=== PATIENT | female | born 1935 | race Caucasian/White ===

== ENCOUNTER 2017-06-23 07:54 | Observation (INO) | payer MEDICARE, BC ==
[~2017-06-23 07:54] MED LIST: Lidocaine 1%/Sod Bicarbonate in NS 8.4% 1 ML Syringe PRN; Sodium Chloride 0.9% 10 ML Syringe FLUSH PRN
[2017-06-23] MEDS ORDERED: Lidocaine 1% with EPINEPHrine 1:100,000 20 ML MDV ONE (07:56)
[2017-06-23] MEDS ORDERED: Sodium Chloride 0.9% 50 ML SDV ONE (07:56)
[2017-06-23] MEDS ORDERED: Lidocaine 1% 4 ML ONE (08:10)
[2017-06-23] MEDS ORDERED: Rocuronium 50 MG/5 ML Vial ONE (08:10)
[2017-06-23] MEDS ORDERED: Ondansetron 4 MG/2 ML SDV ONE (08:10)
[2017-06-23] MEDS ORDERED: Dexamethasone 4 MG/ML 5 ML MDV ONE (08:10)
[2017-06-23] MEDS ORDERED: Lactated Ringers 1,000 ML ONE (08:10)
[2017-06-23] MEDS ORDERED: fentaNYL 250 MCG/5 ML SDV ONE (08:11)
[2017-06-23] MEDS ORDERED: HYDROmorphone 1 MG/ML Syringe ONE (08:11)
[2017-06-23] MEDS ORDERED: Propofol 200 MG/20 ML SDV ONE (08:11)
--- NOTE | 2017-06-23 08:16 | PCM.PREANE ---
Preanesthetic Assessment - Anesthesia/Transfusion/Family Hx Anesthesia History: Prior Anesthesia Without Reaction Family History of Anesthesia Reaction: No Transfusion History: No Prior Transfusion(s) Intubation History: Unknown - Review of Systems Pulmonary: No Symptoms, Cough (chronic cough dry.) Cardiovascular: No Symptoms (History of HTN, Atrial fibrillation, and Pacemaker ), Palpitations (occasionally) Gastrointestinal: No Symptoms Neurological: No Symptoms (History of TIA's back in early 1999.) Other: Reports: Easy Bleeding (Patient on pradaxa and bridging with lovenox.), Thyroid Problems (hypothyroid), Anxiety (Panic attacks resolved with pacemaker placement.) - Physical Assessment NPO Status Date: 06/22/17 NPO Status Time: 19:00 Pulse: 62 O2 Sat by Pulse Oximetry: 98 Respiratory Rate: 16 Blood Pressure: 167/77 Temperature: 62 C Height: 1.57 m Weight: 64 kg ASA Class: 2 Mental Status: Alert & Oriented x3 Airway Class: Mallampati = 2 Dentition: Reports: Normal Dentition, Caries Thyro-Mental Finger Breadths: 3 Mouth Opening Finger Breadths: 3 ROM/Head Extension: Full Lungs: Clear to Auscultation, Normal Respiratory Effort Cardiovascular: Regular Rate, Regular Rhythm, No Murmurs - Lab Values: All lab values reviewed and noted and within acceptable ranges to proceed with scheduled procedure. - Imaging/EKG Impressions: [id number]/08/17 Sinus rhythm, left axis deviation, rate=60 CXR: Left sided pacer in position without pneumothorax, otherwise unremarkable. - Allergies Allergies/Adverse Reactions: Allergies Allergy/AdvReac Type Severity Reaction Status Date / Time Penicillins Allergy Numbness Verified 06/22/17 15:02 - Anesthesia Plan Pre-Op Medication Ordered: Beta Pal Beta Pal: Metoprolol Med Last Dose Date: 06/23/17 Med Last Dose Time: 06:15 - Acknowledgements Anesthesia Type Planned: General Anesthesia Pt an Appropriate Candidate for the Planned Anesthesia: Yes Alternatives and Risks of Anesthesia Discussed w Pt/Guardian: Yes Pt/Guardian Understands and Agrees with Anesthesia Plan: Yes PreAnesthesia Questionnaire HEENT History: Reports: Allergic Rhinitis, Cataract, Glaucoma, Impaired Vision, Other (See Below) Other HEENT History: wears glasses Cardiovascular History: Reports: Afib, High Cholesterol, Hypertension, Pacemaker Respiratory History: Reports: None Gastrointestinal History: Reports: None Genitourinary History: Reports: None PULMONOLOGIST INTENSIVIST History: Reports: , Other (See Below) Other OB/BYN History: x 6, pelvic prolapse, atrohpic vagintis, grade III cystocele, grade II rectocele Musculoskeletal History: Reports: Osteoarthritis, Other (See Below) Other Musculoskeletal History: osteopenia Neurological History: Reports: None Psychiatric History: Reports: Panic Attack Endocrine/Metabolic History: Reports: Hypothyroidism, Osteopenia Hematologic History: Reports: None Immunologic History: Reports: None Oncologic (Cancer) History: Reports: None Dermatologic History: Reports: Other (See Below) Other Dermatologic History: actinic keratosis - Past Surgical History Cardiovascular Surgical History: Reports: Pacer Respiratory Surgical History: Reports: None GI Surgical History: Reports: None Female Surgical History: Reports: None Male Surgical History: Reports: None Endocrine Surgical History: Reports: None, Thyroidectomy Neurological Surgical History: Reports: None Oncologic Surgical History: Reports: None Dermatological Surgical History: Reports: None - SUBSTANCE USE Smoking Status *Q: Never Smoker Recreational Drug Use History: No - HOME MEDS Home Medications: Home Meds Bimatoprost [Lumigan 0.03% Ophth Soln] 1 drop EYEBOTH BEDTIME 06/22/17 [History] Dabigatran Etexilate Mesylate [Pradaxa] 150 mg PO BID 06/22/17 [History] Diltiazem [Cardizem CD] 240 mg PO DAILY 06/22/17 [History] Estradiol [Vagifem] 10 mcg VAG BEDTIME 06/22/17 [History] Levothyroxine 112 mcg PO DAILY 06/22/17 [History] Losartan [Cozaar] 100 mg PO DAILY 06/22/17 [History] Lutein/Minerals/Vit A,C & E [Ocuvite] 1 tab PO DAILY 06/22/17 [History] Metoprolol Succinate 100 mg PO DAILY 06/22/17 [History] Montelukast Sodium 10 mg PO DAILY 06/22/17 [History] Pyridoxine HCl [Vitamin B-6] 100 mg PO DAILY 06/22/17 [History] - CURRENT (IN HOUSE) MEDS Current Meds: Current Medications Lactated Ringer's (Ringers, Lactated) 1,000 mls @ 125 mls/hr IV ASDIRECTED MILAD Stop: 06/23/17 23:00 Lidocaine/Sodium Bicarbonate (Buffered Lidocaine 1% In Ns 8.4%) 0.25 ml .XX ONETIME PRN PRN Reason: Prior to IV Start Stop: 06/23/17 18:00 Sodium Chloride (Saline Flush) 10 ml FLUSH ASDIRECTED PRN PRN Reason: Keep Vein Open Stop: 06/23/17 18:00 Discontinued Medications Dexamethasone (Dexamethasone) Confirm Administered Dose 20 mg .ROUTE .STK-MED ONE Stop: 06/23/17 08:11 Fentanyl (Sublimaze) Confirm Administered Dose 250 mcg .ROUTE .STK-MED ONE Stop: 06/23/17 08:12 Hydromorphone HCl (Dilaudid) Confirm Administered Dose 1 mg .ROUTE .STK-MED ONE Stop: 06/23/17 08:12 Lidocaine HCl (Xylocaine-Mpf 1%) Confirm Administered Dose 4 mls @ as directed .ROUTE .STK-MED ONE Stop: 06/23/17 08:11 Lactated Ringer's (Ringers, Lactated) Confirm Administered Dose 1,000 mls @ as directed .ROUTE .STK-MED ONE Stop: 06/23/17 08:11 Ondansetron HCl (Zofran) Confirm Administered Dose 4 mg .ROUTE .STK-MED ONE Stop: 06/23/17 08:11 Propofol (Diprivan 20 Ml) Confirm Administered Dose 200 mg .ROUTE .STK-MED ONE Stop: 06/23/17 08:12 Rocuronium [place] (Zemuron) Confirm Administered Dose 50 mg .ROUTE .STK-MED ONE Stop: 06/23/17 08:11
[2017-06-23] MEDS: Lactated Ringers 1,000 ML IV SCH ×3 (08:25→17:03)
[2017-06-23] MEDS ORDERED: fentaNYL 100 MCG/2 ML SDV IVPUSH PRN (10:45)
[2017-06-23] MEDS ORDERED: HYDROmorphone 0.5 MG/0.5 ML Syringe IVPUSH PRN (10:45)
[2017-06-23] MEDS ORDERED: Ketorolac 30 MG/ML SDV ONE (11:59)
[2017-06-23] MEDS ORDERED: Haloperidol Lactate 5 MG/ML SDV IVPUSH ONE (12:00)
--- NOTE | 2017-06-23 12:09 | PCM.POSTAN ---
POST ANESTHESIA ASSESSMENT - MENTAL STATUS Mental Status: Alert, Oriented - VITAL SIGNS Pulse Rate: 90 SaO2: 97 Resp Rate: 20 Blood Pressure: 109/62 Temperature: 37.3 C - RESPIRATORY Respiratory Status: Respiratory Rate WNL, Airway Patent, O2 Saturation Stable, Supplemental Oxygen - CARDIOVASCULAR CV Status: Pulse Rate WNL, Blood Pressure Stable - GASTROINTESTINAL GI Status: No Symptoms - PAIN Pain Score: 0 - POST OP HYDRATION Hydration Status: Adequate & Stable
[2017-06-23] MEDS ORDERED: Ondansetron 4 MG/2 ML SDV IVPUSH PRN (12:15)
--- NOTE | 2017-06-23 12:33 | PCM.OPNOTE ---
- General Post-Op/Procedure Note Date of Surgery/Procedure: 06/23/17 Operative Procedure(s): Total vaginal hysterectomy with bilateral salpingo- oophorectomy, anterior and posterior vaginal repair with a subfascial mid- urethral sling procedure Findings: 1. Grade 3 cystocele 2. Grade 2 rectocele 3. Grade 2 uterine descensus 4. Stress urinary incontinence 5. Atrophic vaginitis/vulvitis 6. Urethral caruncle Pre Op Diagnosis: 1. Grade 3 cystocele. 2. Grade 2 rectocele. 3. Grade 2 uterine descensus. 4. Arrest urinary incontinence. 5. Atrophic vaginitis. 6. Urethral caruncle Post-Op Diagnosis: Same Anesthesia Technique: General ET Tube Other Anesthesia Type: Local anesthesia with lidocaine quarter percent with epinephrine Primary Surgeon: Donovan Isaacs Secondary Surgeon: Chandu Savage Anesthesia Provider: Karli Lundy Automation Software Engineer: Flavio Naik Reason Automation Software Engineer Was Necessary: Retraction, patient safety Role of Automation Software Engineer: Retraction, patient's safety Pathology: Uterus, bilateral fallopian tubes and ovaries. Fluid Replacement, Intraop: 2,000 (Crystalloid) EBL in mLs: 100 Drain/Tube Comments:: Indwelling bladder catheter placed at the end of the case with resultant clear yellow urine. Complications: None Condition: Good Free Text/Narrative:: Surgery duration: One hour 29 minutes Procedure: The patient was placed in supine position on the operating table. General endotracheal anesthesia was accomplished. After positioning, and adequate prep and drape, the procedure was then performed. Sterile speculum was placed in the vagina and cervix was visualized. Cervix was injected with lidocaine quarter percent with epinephrine 15 mL used. A full circumference incision was made in the cervical epithelium. The bladder was pushed well back off cervix. Posterior cul-de-sac was then entered sharply without problems. Left uterosacral was crossclamped with a Enseal vessel closure system. The left uterosacral and then the right uterosacral ligament pedicles were developed using the Enseal system. The anterior cul-de-sac was then entered without problems and the uterine vasculature, cardinal ligament and broad ligament then developed using Enseal vessel closure system. The uterus was inverted at this time and upper broad ligament fallopian tube pedicles were crossclamped with Jose J clamps. Specimen was totally removed. Both these pedicles were then secured with a Jose J stitch of #1 Vicryl. Left and right fallopian tube was normal in appearance.. Using Enseal vessel closure system each of the tubes was then removed and sent with the specimen. Both ovaries were removed per patient's desire. The Enseal vessel closure system was used to remove both ovaries. The patient was found to be hemostatically intact at this time. A pursestring suture was and placed in the peritoneal cavity externalizing pedicles in case of bleeding. Vaginal cuff was sutured for hemostatic reasons with a running locked suture of 0 Monocryl from the 2 o'clock position to the 10 o'clock position posteriorly. Anterior vaginal repair was performed in the routine fashion. The midline epithelium was grasped approximately 3 cm from the urethral meatus. The epithelium at the vaginal cuff after removal of the uterus was grasped 2 with Allis clamps. The epithelium was infiltrated with lidocaine quarter percent with epinephrine approximately 10 mL. Midline incision was made in the epithelium was dissected off the underlying support tissue. The vesicovaginal fascia that remained was then reapproximated midline with approximately 6 the type sutures of 0 Monocryl. This effectively reduced the cystocele. Excess epithelium was removed on each side sharply and the epithelium was reapproximated using 3-0 Monocryl in a short running suture. The posterior vaginal cuff was enclosed right side to left side with running lock suture of 0 Monocryl. Posterior repair was then performed.The uppermost portion of the rectocele was identified and was grasped midline with an Allis clamp. The introital area was grasped at approximately the 4:00 and 8:00 positions at the junction of the vaginal and vulvar epithelium. The area of epithelium was then infiltrated with lidocaine quarter percent with epinephrine. A valerie-shaped piece of epithelium was removed from the posterior introital and perineal area. The vaginal epithelium was then undermined superiorly to the top of the rectocele. It was then incised midline. With sharp and blunt dissection the epithelium was then dissected off of the underlying vesicovaginal fascia. At this point approximately 5 sutures of 0 Monocryl were placed to reapproximate the lateral supportive tissue midline and reduce the rectocele. The excess epithelium was then excised and the epithelium overlying the rectocele repair was then reapproximated with a running suture of 3-0 Monocryl. Perineoplasty was performed using a prostate for V-type stitches of 0 Monocryl. This lengthened the perineal body and the vagina. Also change the angle of vagina. At this point the epithelium over the perineum was closed in an episiotomy fashion using the 3-0 Monocryl suture. The patient's bladder was drained with a red rubber catheter. Normal urine was removed. The epithelium overlying the urethra was grasped approximately 1 cm from the urethral meatus and approximately 2 cm cephalad from there with Allis clamps. The area of the skin overlying the medial aspect of the obturator foramen on each side just posterior to the origin the abductor longus musclewas marked with a marking pen. These 2 areas and the sub-fascial layer of the vaginal were then infiltrated with lidocaine quarter percent with epinephrinetotal of approximately 10 mL was used. incisions made in the epithelium overlying the urethra and 2 small stab wounds 3 mm in length were made in the 2 areas of the panty line of the patient. The subfascial planes and adequately dissected bilaterally to allow placement of the mesh. The helical adapter was then placed through the obturator on patient's left side brought out through the vaginal subfascial plane. Mesh was attached to it and then was pulled back through the obturator foramen. Same was done on the right side. Mesh was then snugged up to the urethra. A Hawk Dilator 15 mm in diameter was used as a spacer to place the mesh in a tension- free position. At this point the mesh was cut off at the skin surface and the dilator was removed. The midline epithelium was closed with a short running suture of 3-0 Monocryl. Skin incisions were closed with Dermabond skin glue. The patient was returned to supine position, awakened from general endotracheal anesthesia and was discharged from operating room in good condition.
[2017-06-23] MEDS ORDERED: Ibuprofen 400 MG Tab PO PRN (18:00)
[2017-06-23] MEDS: Acetaminophen/oxyCODONE 325-5 MG Tab PO PRN (20:44)
[2017-06-23] MEDS ORDERED: Latanoprost 0.005% Ophth Soln 2.5 ML Bottle EYEBOTH SCH (21:00)
[2017-06-23] MEDS ORDERED: Montelukast 10 MG Tab PO SCH (21:00)
[2017-06-24] MEDS: Lactated Ringers 1,000 ML IV SCH (01:31)
[2017-06-24] MEDS ORDERED: Levothyroxine 112 MCG Tab PO SCH (06:00)
[2017-06-24] MEDS: Acetaminophen/oxyCODONE 325-5 MG Tab PO PRN (06:17)
--- NOTE | 2017-06-24 08:34 | PCM48HPAN ---
Post Anesthesia Note - EVALUATION WITHIN 48HRS OF ANESTHETIC Vital Signs in Normal Range: Yes Patient Participated in Evaluation: Yes Respiratory Function Stable: Yes Airway Patent: Yes Cardiovascular Function Stable: Yes Hydration Status Stable: Yes Pain Control Satisfactory: Yes Nausea and Vomiting Control Satisfactory: Yes Mental Status Recovered: Yes - COMMENTS/OBSERVATIONS Free Text/Narrative:: Lesli is resting comfortably. She was up walking the halls yesterday. She plans to do the same today. No complications noted at this time. No further questions.
[2017-06-24] MEDS ORDERED: Dabigatran 75 MG Cap PO SCH (09:00)
[2017-06-24] MEDS ORDERED: Metoprolol Succinate 50 MG Tab.ER PO SCH (09:00)
[2017-06-24] MEDS ORDERED: Multivitamins with Minerals/Folic Acid/Lutein/Zeaxanth Tab PO SCH (09:00)
[2017-06-24] MEDS ORDERED: Vitamin B6-pyridOXINE 50 MG Tab PO SCH (09:00)
[2017-06-24] MEDS ORDERED: Diltiazem 240 MG Cap.ER PO SCH (09:00)
[2017-06-24] MEDS ORDERED: Losartan 100 MG Tab PO SCH (09:00)
--- NOTE | 2017-06-24 10:59 | PCM.SN ---
- Free Text/Narrative Note: [facility] outpatient observation notice is corrected and should read as follows: Hospital-level care for over 2 midnight is not expected: Yes Your Medicare managed insurance suggests OBS level of care: Yes Does not meet criteria for inpatient admission: Yes Please modify the patient's admission data sheet with the above information.
--- NOTE | 2017-06-24 11:05 | PCM.DCSUM1 ---
Discharge Summary - Hospital Course Free Text/Narrative:: Lesli is a an 81-year-old multigravida white female who was admitted on 2016 for surgery to correct pelvic relaxation consisting of a cystocele, uterine descensus, rectocele and for surgical therapy of stress urinary incontinence. Please see admission history and physical and operative report for details. Patient was admitted overnight because of pain control and monitoring because of multiple comorbidities. She had good urine output, catheter was removed this a.m. and patient has been able to void. Her vital signs been stable. She has been started back on her cardiac and other medications. Signs been stable, she' s been afebrile. She is doing very well and desires to be discharged. - Discharge Data Discharge Date: 06/24/17 Discharge Disposition: Home, Self-Care 01 Condition: Good - Patient Summary/Data Operative Procedure(s) Performed: Total vaginal hysterectomy with bilateral salpingo-oophorectomy, anterior and posterior vaginal repair with a subfascial mid-urethral sling procedure - Patient Instructions Diet: Regular Diet as Tolerated Activity: As Tolerated (No lifting greater than 15 pounds, no driving car 1 week and nothing in the vagina.) Driving: Do Not Drive Showering/Bathing: May Shower (May take a bath) Notify Provider of: Fever, Increased Pain, Swelling and Redness, Drainage, Nausea and/or Vomiting - Discharge Plan Home Medications: Home Meds Bimatoprost [Lumigan 0.03% Ophth Soln] 1 drop EYEBOTH BEDTIME 06/22/17 [History] Dabigatran Etexilate Mesylate [Pradaxa] 150 mg PO BID 06/22/17 [History] Diltiazem [Cardizem CD] 240 mg PO DAILY 06/22/17 [History] Levothyroxine 112 mcg PO DAILY 06/22/17 [History] Losartan [Cozaar] 100 mg PO DAILY 06/22/17 [History] Lutein/Minerals/Vit A,C & E [Ocuvite] 1 tab PO DAILY 06/22/17 [History] Metoprolol Succinate 100 mg PO DAILY 06/22/17 [History] Montelukast Sodium 10 mg PO DAILY 06/22/17 [History] Pyridoxine HCl [Vitamin B-6] 100 mg PO DAILY 06/22/17 [History] Enoxaparin Sodium [Lovenox] 60 mg SQ BID 06/23/17 [History] Ibuprofen [Motrin] 400 mg PO Q6H PRN #30 tablet 06/24/17 [Rx] Patient Handouts: Hysterectomy Information, [id number], Anterior and Posterior Colporrhaphy, Sling Procedure, Care After, Atrial Flutter, Dabigatran oral capsules, Cystocele Repair, Care After Referrals: Donovan Isaacs MD [Physician] - - Discharge Summary/Plan Comment DC Time >30 min.: No Discharge Summary/Plan Comment: Discharge instructions: 1. Discharge home 2. Regular, high fiber diet. 3. Diet, activity and follow-up discussed in detail with patient. 4. Medications per home medication list printed, discussed with them given to the patient 5. May take occasional ibuprofen for pain. She is not having any pain whatsoever at the time of discharge. 6. Patient to call [facility] her primary care provider in [place] for instructions concerning her anticoagulant therapy. Condition: Good - Patient Data Vitals - Most Recent: Last Vital Signs Temp 36.7 C 06/24/17 03:22 Pulse 78 06/24/17 09:15 Resp 16 06/24/17 03:22 BP 130/73 06/24/17 09:20 Pulse Ox 93 L 06/24/17 03:22 Weight - Most Recent: 67.676 kg I&O - Last 24 hours: Intake & Output 06/23/17 06/24/17 06/24/17 22:59 06:59 14:59 Intake Total 1450 2105 Output Total 300 400 Balance 1150 1705 Lab Results - Last 24 hrs: Laboratory Results - last 24 hr 06/23/17 Range/Units 08:22 Crossmatch See Detail Med Orders - Current: Current Medications Dabigatran (Pradaxa) 150 mg PO BID [facility] Diltiazem HCl (Dilacor Xr) 240 mg PO DAILY [facility] Last Admin: 06/24/17 09:14 Dose: 240 mg Lactated Ringer's (Ringers, Lactated) 1,000 mls @ 125 mls/hr IV ASDIRECTED [facility] Last Admin: 06/24/17 01:31 Dose: 125 mls/hr Ibuprofen (Motrin) 400 mg PO Q6H PRN PRN Reason: Pain (mild 1-3) Last Admin: 06/23/17 17:01 Dose: 400 mg Latanoprost (Xalatan 0.005% Ophth Soln) 0 ml EYEBOTH BEDTIME [facility] Last Admin: 06/23/17 20:46 Dose: Not Given Levothyroxine Sodium (Levothyroxine) 112 mcg PO ACBREAKFAST [facility] Last Admin: 06/24/17 06:17 Dose: 112 mcg Losartan Potassium (Cozaar) 100 mg PO DAILY [facility] Last Admin: 06/24/17 09:20 Dose: 100 mg Metoprolol Succinate (Toprol Xl) 100 mg PO DAILY [facility] Last Admin: 06/24/17 09:15 Dose: 100 mg Montelukast Sodium (Singulair) 10 mg PO BEDTIME [facility] Last Admin: 06/23/17 20:44 Dose: 10 mg Ondansetron HCl (Zofran) 4 mg IVPUSH Q4H PRN PRN Reason: Nausea/Vomiting Oxycodone/Acetaminophen (Percocet 325-5 Mg) 1 tab PO Q4H PRN PRN Reason: Pain (moderate 4-6) Last Admin: 06/24/17 06:17 Dose: 1 tab Pyridoxine HCl (Vitamin B6-Pyridoxine) 100 mg PO DAILY [facility] Last Admin: 06/24/17 09:15 Dose: 100 mg Vit A/Vit C/Vit E/Selen/Cu/Zn/Lutei (Icaps Mv) 1 tab PO DAILY [facility] Last Admin: 06/24/17 09:14 Dose: 1 tab Discontinued Medications Dexamethasone (Dexamethasone) Confirm Administered Dose 20 mg .ROUTE .STK-MED ONE Stop: 06/23/17 08:11 Fentanyl (Sublimaze) Confirm Administered Dose 250 mcg .ROUTE .STK-MED ONE Stop: 06/23/17 08:12 Fentanyl (Sublimaze) 50 mcg IVPUSH Q5M PRN PRN Reason: Pain Stop: 06/23/17 18:00 Haloperidol Lactate (Haldol) 1 mg IVPUSH ONETIME ONE Stop: 06/23/17 12:01 Last Admin: 06/23/17 20:08 Dose: Not Given Hydromorphone HCl (Dilaudid) Confirm Administered Dose 1 mg .ROUTE .STK-MED ONE Stop: 06/23/17 08:12 Hydromorphone HCl (Dilaudid) 0.5 mg IVPUSH Q15M PRN PRN Reason: severe pain Stop: 06/23/17 18:00 Lactated Ringer's (Ringers, Lactated) 1,000 mls @ 125 mls/hr IV ASDIRECTED MILAD Stop: 06/23/17 14:00 Last Admin: 06/23/17 09:49 Dose: 125 mls/hr Lidocaine HCl (Xylocaine-Mpf 1%) Confirm Administered Dose 4 mls @ as directed .ROUTE .STK-MED ONE Stop: 06/23/17 08:11 Lactated Ringer's (Ringers, Lactated) Confirm Administered Dose 1,000 mls @ as directed .ROUTE .STK-MED ONE Stop: 06/23/17 08:11 Ketorolac Tromethamine (Toradol) Confirm Administered Dose 30 mg .ROUTE .STK- MED ONE Stop: 06/23/17 12:00 Lidocaine/Epinephrine (Xylocaine 1% With Epinephrine 1:100,000) Confirm Administered Dose 20 ml .ROUTE .STK-MED ONE Stop: 06/23/17 07:57 Last Admin: 06/23/17 10:14 Dose: 12.5 ml Lidocaine/Sodium Bicarbonate (Buffered Lidocaine 1% In Ns 8.4%) 0.25 ml .XX ONETIME PRN PRN Reason: Prior to IV Start Stop: 06/23/17 18:00 Last Admin: 06/23/17 08:24 Dose: 0.25 ml Ondansetron HCl (Zofran) Confirm Administered Dose 4 mg .ROUTE .STK-MED ONE Stop: 06/23/17 08:11 Propofol (Diprivan 20 Ml) Confirm Administered Dose 200 mg .ROUTE .STK-MED ONE Stop: 06/23/17 08:12 Rocuronium [place] (Zemuron) Confirm Administered Dose 50 mg .ROUTE .STK-MED ONE Stop: 06/23/17 08:11 Sodium Chloride (Saline Flush) 10 ml FLUSH ASDIRECTED PRN PRN Reason: Keep Vein Open Stop: 06/23/17 18:00 Sodium Chloride (Normal Saline) Confirm Administered Dose 50 ml .ROUTE .STK-MED ONE Stop: 06/23/17 07:57 Last Admin: 06/23/17 10:14 Dose: 37.5 ml *Q Meaningful Use (DIS) - VTE *Q VTE Criteria *Q: - Stroke *Q Stroke Criteria *Q: - AMI *Q AMI Criteria *Q:
== END 2017-06-24 15:10 | disposition home or self-care (01) ==
LOC: JD.SDS 07:54 → JD.MS 12:15
PROVIDERS: ADMIT Obstetrics & Gynecology; ATTEND Obstetrics & Gynecology
DX: D25.1 Intramural leiomyoma of uterus (principal); N83.8 Other noninflammatory disorders of ovary, fallopian tube and broad ligament; N72 Inflammatory disease of cervix uteri; N80.0 Endometriosis of uterus; R23.4 Changes in skin texture; N81.4 Uterovaginal prolapse, unspecified; I10 Essential (primary) hypertension; E78.00 Pure hypercholesterolemia, unspecified; E03.9 Hypothyroidism, unspecified; Z88.0 Allergy status to penicillin; Z79.899 Other long term (current) drug therapy; Z95.0 Presence of cardiac pacemaker; Z98.890 Other specified postprocedural states
CPT/HCPCS: 36415; 57260; 57288; 58552; 86850; 86900; 86901; 94760; A9270; C1771; J1100; J1170; J1885; J2405; J3010; J7120; 00944; 88305; G0378; J2704

== ENCOUNTER 2020-04-09 11:58 | Emergency (ER) | payer MEDICARE, BC ==
[2020-04-09] MEDS ORDERED: Sodium Chloride 0.9% 10 ML Syringe FLUSH PRN (12:20)
[2020-04-09] MEDS ORDERED: Ondansetron 4 MG/2 ML SDV IVPUSH ONE (12:20)
[2020-04-09] MEDS ORDERED: Sodium Chloride 0.9% 1,000 ML IV SCH (12:30)
--- NOTE | 2020-04-09 13:36 | CT ---
Head CT Technique: Multiple axial sections through the brain were obtained. Intravenous contrast was not utilized. Comparison: Prior head CT study of 01/09/11. Findings: Ventricles along with basal cisterns and sulci over the convexities are moderately prominent. Diffuse diminished density noted within the periventricular and subcortical white matter which is compatible with small vessel ischemic demyelination change. No other abnormal parenchymal densities are seen. No evidence of intracranial hemorrhage. No midline shift or mass-effect is seen. Bone window settings were reviewed. Visualized paranasal sinuses show nothing acute. Visualized mastoid sinuses show nothing acute. No acute calvarial abnormality is appreciated. Impression: 1. Senescent change as described above. 2. No acute intracranial abnormality is appreciated. Diagnostic code #2 This report was dictated in MDT
--- NOTE | 2020-04-09 14:35 | EDM.PDOC ---
ED HPI GENERAL MEDICAL PROBLEM - General Chief Complaint: Neurological Problem Stated Complaint: NAUSEA/DIZZY Time Seen by Provider: 04/09/20 12:12 Source of Information: Reports: Patient History Limitations: Reports: No Limitations - History of Present Illness INITIAL COMMENTS - FREE TEXT/NARRATIVE: The patient presents with dizziness. She felt great today. She was on he way to [place]. She was sitting in her car and she got dizzy and had nausea and vomiting. She was spinning. She has no headache, fever, chills, cough, congestion, runny nose, chest pain, shortness of breath or abdominal pain. This has never happened to her before. She has no numbness or weakness. Onset: Sudden Duration: Minutes: Severity: Severe Improves with: Reports: Immobilization Worsens with: Reports: Movement Context: Denies: Trauma Associated Symptoms: Reports: Nausea/Vomiting. Denies: Chest Pain, Cough, Fever/Chills, Headaches, Shortness of Breath - Related Data Allergies Allergy/AdvReac Type Severity Reaction Status Date / Time Penicillins Allergy Numbness Verified 06/22/17 15:02 Home Meds: Home Meds Bimatoprost [Lumigan 0.03% Ophth Soln] 1 drop EYEBOTH BEDTIME 06/22/17 [History] Diltiazem [Cardizem CD] 360 mg PO DAILY 06/22/17 [History] Levothyroxine 125 mcg PO DAILY 06/22/17 [History] Losartan [Cozaar] 50 mg PO DAILY 06/22/17 [History] Metoprolol Succinate 100 mg PO DAILY 06/22/17 [History] Amiodarone [Cordarone] 200 mg PO DAILY 04/09/20 [History] Apixaban [Eliquis] 5 mg PO BID 04/09/20 [History] Furosemide [Lasix] 20 mg PO DAILY 04/09/20 [History] Meclizine [Antivert] 25 mg PO Q6H PRN #30 tab 04/09/20 [Rx] Past Medical History HEENT History: Reports: Cataract, Glaucoma, Impaired Vision, Other (See Below) Other HEENT History: wears glasses Cardiovascular History: Reports: Afib, Hypertension, Pacemaker Respiratory History: Reports: None Gastrointestinal History: Reports: None Genitourinary History: Reports: None RN CARE MANAGER History: Reports: , Other (See Below) Other RN CARE MANAGER History: x 6, pelvic prolapse, atrohpic vagintis, grade III cystocele, grade II rectocele Musculoskeletal History: Reports: Osteoarthritis, Other (See Below) Other Musculoskeletal History: was in here that patient has osteopenia, pt states that she does not have this. Neurological History: Reports: None Psychiatric History: Reports: Panic Attack Endocrine/Metabolic History: Reports: Hypothyroidism, Osteopenia Hematologic History: Reports: None Immunologic History: Reports: None Oncologic (Cancer) History: Reports: None Dermatologic History: Reports: Other (See Below) Other Dermatologic History: actinic keratosis - Infectious Disease History Infectious Disease History: Reports: Chicken Pox, Influenza, Measles, Mumps - Past Surgical History HEENT Surgical History: Reports: Cataract Surgery Cardiovascular Surgical History: Reports: Pacer Respiratory Surgical History: Reports: None GI Surgical History: Reports: None Female Surgical History: Reports: None Endocrine Surgical History: Reports: Thyroidectomy Neurological Surgical History: Reports: None Oncologic Surgical History: Reports: None Dermatological Surgical History: Reports: None Social & Family History - Family History Family Medical History: Noncontributory - Tobacco Use Smoking Status *Q: Never Smoker - Caffeine Use Caffeine Use: Reports: Coffee, Tea Other Caffeine Use: very seldom ED ROS GENERAL - Review of Systems Review Of Systems: See Below Constitutional: Reports: No Symptoms HEENT: Reports: Vertigo Respiratory: Reports: No Symptoms Cardiovascular: Reports: No Symptoms Endocrine: Reports: No Symptoms GI/Abdominal: Reports: No Symptoms : Reports: No Symptoms Musculoskeletal: Reports: No Symptoms ED EXAM, NEURO - Physical Exam Exam: See Below Exam Limited By: No Limitations General Appearance: Alert, No Apparent Distress Eye Exam: Right Eye: Nystagmus Ears: Normal External Exam Nose: Normal Inspection Head Exam: Atraumatic, Normocephalic Neck: Normal Inspection, Supple, Non-Tender Respiratory/Chest: No Respiratory Distress, Lungs Clear, Normal Breath Sounds Cardiovascular: Regular Rate, Rhythm, No Edema, No Murmur GI/Abdominal: Soft, Non-Tender, No Organomegaly, No Mass Neurological: Alert, No Motor/Sensory Deficits, Oriented x 3 EKG INTERPRETATION EKG Date: 04/09/20 Time: 12:24 Rhythm: A-Fib Rate (Beats/Min): 88 [place]: Normal P-Wave: Absent QRS: Normal ST-T: Normal QT: Normal Course - Vital Signs Last Recorded V/S: Last Vital Signs Temp 96.9 F 04/09/20 12:13 Pulse 93 04/09/20 12:13 Resp 16 04/09/20 12:13 BP 147/80 H 04/09/20 12:13 Pulse Ox 100 04/09/20 12:13 - Orders/Labs/Meds Orders: Active Orders 24 hr Category Date Time Status Cardiac Monitoring [RC] . DIRECTED Care 04/09/20 12:20 Active EKG Documentation Completion [RC] STAT Care 04/09/20 12:21 Active Peripheral IV Care [RC] . DIRECTED Care 04/09/20 12:21 Active Sodium Chloride 0.9% [Normal Saline] 1,000 ml Med 04/09/20 12:30 Active IV ASDIRECTED Sodium Chloride 0.9% [Saline Flush] Med 04/09/20 12:20 Active 10 ml FLUSH ASDIRECTED PRN ED Antiemetic Medication Reflex [OM.PC] Stat Oth 04/09/20 12:20 Ordered Peripheral IV Insertion Adult [OM.PC] Stat Oth 04/09/20 12:20 Ordered Medication Orders Sodium Chloride (Normal Saline) 1,000 mls @ 125 mls/hr IV ASDIRECTED MILAD Last Admin: 04/09/20 12:29 Dose: 125 mls/hr Documented by: KATELYNN Sodium Chloride (Saline Flush) 10 ml FLUSH ASDIRECTED PRN PRN Reason: Keep Vein Open Last Admin: 04/09/20 12:29 Dose: 10 ml Documented by: KATELYNN Labs: Laboratory Tests 04/09/20 04/09/20 04/09/20 Range/Units 12:28 12:28 13:56 WBC 9.12 (3.98-10.04) K/mm3 RBC 4.95 (3.98-5.22) M/mm3 Hgb 14.9 (11.2-15.7) gm/dl Hct 45.4 H (34.1-44.9) % MCV 91.7 (79.4-94.8) fl MCH 30.1 (25.6-32.2) pg MCHC 32.8 (32.2-35.5) g/dl RDW Std Deviation 46.9 H (36.4-46.3) fL Plt Count 268 (182-369) K/mm3 MPV 9.7 (9.4-12.3) fl Neut % (Auto) 56.0 (34.0-71.1) % Lymph % (Auto) 32.2 (19.3-51.7) % [place] % (Auto) 10.2 (4.7-12.5) % Eos % (Auto) 1.1 (0.7-5.8) Baso % (Auto) 0.2 (0.1-1.2) % Neut # (Auto) 5.10 (1.56-6.13) K/mm3 Lymph # (Auto) 2.94 (1.18-3.74) K/mm3 [place] # (Auto) 0.93 H (0.24-0.36) K/mm3 Eos # (Auto) 0.10 (0.04-0.36) K/mm3 Baso # (Auto) 0.02 (0.01-0.08) K/mm3 Sodium 137 (136-145) mEq/L Potassium 3.5 (3.5-5.1) mEq/L Chloride 100 (98-107) mEq/L Carbon Dioxide 23 (21-32) mEq/L Anion Gap 17.5 H (5-15) BUN 21 H (7-18) mg/dL Creatinine 1.2 H (0.55-1.02) mg/dL Est Cr Clr Drug Dosing 26.62 mL/min Estimated GFR (MDRD) 43 (>60) mL/min BUN/Creatinine Ratio 17.5 (14-18) Glucose 136 H (83-115) mg/dL Calcium 9.6 (8.5-10.1) mg/dL Total Bilirubin 0.9 (0.2-1.0) mg/dL AST 40 H (15-37) U/L ALT 44 (14-59) U/L Alkaline Phosphatase 264 H (46-116) U/L Troponin I < 0.017 (0.00-0.056) ng/mL Total Protein 8.0 (6.4-8.2) g/dl Albumin 3.4 (3.4-5.0) g/dl Globulin 4.6 gm/dL Albumin/Globulin Ratio 0.7 L (1-2) Urine Color Light yellow (Yellow) Urine Appearance Clear (Clear) Urine pH 7.0 (5.0-8.0) Ur Specific [place] 1.020 (1.005-1.030) Urine Protein Negative (Negative) Urine Glucose (UA) Negative (Negative) Urine Ketones Negative (Negative) Urine Occult Blood Negative (Negative) Urine Nitrite Negative (Negative) Urine Bilirubin Negative (Negative) Urine Urobilinogen 0.2 (0.2-1.0) Ur Leukocyte Esterase Negative (Negative) Meds: Medications Generic Name Dose Route Start Last Admin Trade Name Freq PRN Reason Stop Dose Admin Sodium Chloride 1,000 mls @ 125 mls/hr 04/09/20 12:30 04/09/20 12:29 Normal Saline IV 125 mls/hr ASDIRECTED MILAD Administration Sodium Chloride 10 ml 04/09/20 12:20 04/09/20 12:29 Saline Flush FLUSH 10 ml ASDIRECTED PRN Administration Keep Vein Open Discontinued Medications Generic Name Dose Route Start Last Admin Trade Name Freq PRN Reason Stop Dose Admin Meclizine HCl 25 mg 04/09/20 12:21 04/09/20 12:29 Antivert PO 04/09/20 12:22 25 mg ONETIME ONE Administration Ondansetron HCl 4 mg 04/09/20 12:20 04/09/20 12:29 Zofran IVPUSH 04/09/20 12:21 4 mg ONETIME ONE Administration - Re-Assessments/Exams Free Text/Narrative Re-Assessment/Exam: 04/09/20 14:33 I ordered an IV NS at 125mL/hr, zofran 4mg IV, antivert 25mg PO, labs, EKG and a CT of her head. Her EKG shows Atrial fibrillation. The CT of her head shows senescent changes and nothing acute. Her CBC looks good. Her anion gap is elevated at 17.5. Her creatinine is elevated at 1.2. Her glucose is 136. Her alk phos is elevated at 264. Her troponin is negative. Her UA shows no UTI. She feels much better. I will get her on some antivert and have he follow up with physical therapy. Departure - Departure Time of Disposition: 14:35 Disposition: Home, Self-Care 01 Condition: Good Clinical Impression: Vertigo - Discharge Information *PRESCRIPTION DRUG MONITORING PROGRAM REVIEWED*: Not Applicable *COPY OF PRESCRIPTION DRUG MONITORING REPORT IN PATIENT THALIA: Not Applicable Prescriptions: Meclizine [Antivert] 25 mg PO Q6H PRN #30 tab PRN Reason: Dizziness Referrals: Erma Field NP [Primary Care Provider] - 1 Week Additional Instructions: Take your medicine as prescribed. Take the antivert every 6 hours as needed for dizziness. Follow up with physical therapy within a week. Please return if you are worse. Sepsis Event Note (ED) - Evaluation Sepsis Screening Result: No Definite Risk - Focused Exam Vital Signs: Vital Signs Temp Pulse Resp BP Pulse Ox 04/09/20 12:13 96.9 F 93 16 147/80 H 100 - My Orders Last 24 Hours: My Active Orders 04/09/20 12:20 Cardiac Monitoring [RC] . DIRECTED Sodium Chloride 0.9% [Saline Flush] 10 ml FLUSH ASDIRECTED PRN ED Antiemetic Medication Reflex [OM.PC] Stat Peripheral IV Insertion Adult [OM.PC] Stat 04/09/20 12:21 EKG Documentation Completion [RC] STAT Peripheral IV Care [RC] . DIRECTED 04/09/20 12:30 Sodium Chloride 0.9% [Normal Saline] 1,000 ml IV ASDIRECTED - Assessment/Plan Last 24 Hours: My Active Orders 04/09/20 12:20 Cardiac Monitoring [RC] . DIRECTED Sodium Chloride 0.9% [Saline Flush] 10 ml FLUSH ASDIRECTED PRN ED Antiemetic Medication Reflex [OM.PC] Stat Peripheral IV Insertion Adult [OM.PC] Stat 04/09/20 12:21 EKG Documentation Completion [RC] STAT Peripheral IV Care [RC] . DIRECTED 04/09/20 12:30 Sodium Chloride 0.9% [Normal Saline] 1,000 ml IV ASDIRECTED
== END 2020-04-09 15:03 | disposition home or self-care (01) ==
LOC: JD.ED 11:58
DX: R42 Dizziness and giddiness (principal); R11.2 Nausea with vomiting, unspecified; I10 Essential (primary) hypertension; I48.91 Unspecified atrial fibrillation; E03.9 Hypothyroidism, unspecified; Z88.0 Allergy status to penicillin; Z79.899 Other long term (current) drug therapy
CPT/HCPCS: 36415; 70450; 80053; 81003; 84484; 85025; 93005; 96361; 96374; 99284; A9270; J2405; J7030; 93010

== ENCOUNTER 2020-08-27 13:20 | Emergency (ER) | payer MEDICARE, BC ==
--- NOTE | 2020-08-27 14:31 | EDM.PDOC ---
ED HPI GENERAL MEDICAL PROBLEM - General Chief Complaint: Back Pain or Injury Stated Complaint: BACK PAIN Time Seen by Provider: 08/27/20 13:56 Source of Information: Reports: Patient, Family, RN Notes Reviewed History Limitations: Reports: No Limitations - History of Present Illness INITIAL COMMENTS - FREE TEXT/NARRATIVE: Patient is an 84-year-old female presenting to the emergency department with complaints of ongoing low back pain radiating down her right leg. Patient states 3 weeks ago she fell and landed on her tailbone. Since that time, she has had this pain. She was seen in the clinic last week and had a CT scan done of her pelvis and lumbar spine. Copy this report was obtained and showed no acute changes within the pelvis and degenerative changes within her lumbar spine. Recommend possible MRI if needed. Patient states that she has not followed up in the clinic with her primary care provider since the CT was completed. She has been alternating Tylenol and ibuprofen as well as heat and ice to her low back with minimal relief. She has seen a chiropractor and daughter states that she has been going to physical therapy as well. She denies any bowel or bladder dysfunction. She does use a walker at home to ambulate. Lower Back Pain Score (Numeric/FACES): 4 - Related Data Allergies Allergy/AdvReac Type Severity Reaction Status Date / Time Penicillins Allergy Numbness Verified 08/27/20 13:55 Home Meds: Home Meds Levothyroxine 125 mcg PO DAILY 06/22/17 [History] Losartan [Cozaar] 25 mg PO DAILY 06/22/17 [History] Metoprolol Succinate 100 mg PO DAILY 06/22/17 [History] Apixaban [Eliquis] 5 mg PO BID 04/09/20 [History] Furosemide [Lasix] 20 mg PO DAILY 04/09/20 [History] traMADol HCl [Tramadol HCl] 25 - 50 mg PO Q8H PRN #15 tablet 08/27/20 [Rx] Past Medical History HEENT History: Reports: Cataract, Glaucoma, Impaired Vision, Other (See Below) Other HEENT History: wears glasses Cardiovascular History: Reports: Afib, Hypertension, Pacemaker Respiratory History: Reports: None Gastrointestinal History: Reports: None Genitourinary History: Reports: None FLIGHT CONTROL MANAGER History: Reports: , Other (See Below) Other FLIGHT CONTROL MANAGER History: x 6, pelvic prolapse, atrohpic vagintis, grade III cystocele, grade II rectocele Musculoskeletal History: Reports: Osteoarthritis Other Musculoskeletal History: was in here that patient has osteopenia, pt states that she does not have this. Neurological History: Reports: None Psychiatric History: Reports: Panic Attack Endocrine/Metabolic History: Reports: Hypothyroidism Hematologic History: Reports: None Immunologic History: Reports: None Oncologic (Cancer) History: Reports: None Dermatologic History: Reports: Other (See Below) Other Dermatologic History: actinic keratosis - Infectious Disease History Infectious Disease History: Reports: Chicken Pox, Influenza, Measles, Mumps - Past Surgical History HEENT Surgical History: Reports: Cataract Surgery Cardiovascular Surgical History: Reports: Pacer Respiratory Surgical History: Reports: None GI Surgical History: Reports: None Female Surgical History: Reports: None Endocrine Surgical History: Reports: Thyroidectomy Neurological Surgical History: Reports: None Oncologic Surgical History: Reports: None Dermatological Surgical History: Reports: None Social & Family History - Family History Family Medical History: No Pertinent Family History - Tobacco Use Tobacco Use Status *Q: Never Tobacco User - Caffeine Use Caffeine Use: Reports: Coffee, Tea Other Caffeine Use: very seldom ED ROS GENERAL - Review of Systems Review Of Systems: See Below Constitutional: Reports: No Symptoms. Denies: Fever, Chills HEENT: Reports: No Symptoms Respiratory: Reports: No Symptoms Cardiovascular: Reports: No Symptoms Endocrine: Reports: No Symptoms GI/Abdominal: Reports: No Symptoms : Reports: No Symptoms Musculoskeletal: Reports: Back Pain Skin: Reports: No Symptoms Neurological: Reports: No Symptoms. Denies: Confusion, Dizziness, Headache Psychiatric: Reports: No Symptoms Hematologic/Lymphatic: Reports: No Symptoms Immunologic: Reports: No Symptoms ED EXAM,LOWER BACK PAIN/INJURY - Physical Exam Exam: See Below General Appearance: Alert, WD/WN, No Apparent Distress Respiratory/Chest: No Respiratory Distress, Lungs Clear, Normal Breath Sounds, No Accessory Muscle Use, Chest Non-Tender Cardiovascular: Normal Peripheral Pulses, Regular Rate, Rhythm, No Edema, No Gallop, No JVD, No Murmur, No Rub GI/Abdominal: Normal Bowel Sounds, Soft, Non-Tender, No Organomegaly, No Distention, No Abnormal Bruit, No Mass Back Exam: Paraspinal Tenderness (right lateral to ), Vertebral Tenderness (L5- S1), Other (right SI joint tenderness) Neurological: Alert, Normal Mood/Affect, Normal Dorsiflexion, CN II-XII Intact, Normal Plantar Flexion, Normal Gait, Normal Reflexes, No Motor/Sensory Deficits, Oriented x 3 Psychiatric: Normal Affect, Normal Mood Skin Exam: Warm, Dry, Intact, Normal Color, No Rash Course - Vital Signs Last Recorded V/S: Last Vital Signs Temp 98.2 F 08/27/20 13:52 Pulse 89 08/27/20 13:52 Resp 16 08/27/20 13:52 BP 158/91 H 08/27/20 13:52 Pulse Ox 100 08/27/20 13:52 - Re-Assessments/Exams Free Text/Narrative Re-Assessment/Exam: Patient is an 84-year-old female presenting to the emergency department with complaints of ongoing lumbar pain with radiation down her right leg. She had a fall 3 weeks ago and states she has been having the pain since this time. She had a CT scan completed in [place] 1 week ago. Results were reviewed and showed no acute abnormalities but significant degenerative changes. Patient has been using Tylenol and ibuprofen for pain with little relief. Daughter states she is also been attending physical therapy. On exam, patient does have tenderness to the L5-S1 vertebrae as well as the right lateral paraspinous muscles in the SI joint. She denies any bowel or bladder dysfunction. At this point, do not feel any further imaging is indicated as she has not had any further injury. This has been an ongoing problem for the last 3 weeks. Discussed that she should avoid NSAIDs as she is currently on Eliquis since this significant increase her risk for GI bleeds. I will start her on low-dose tramadol. Recommend 25 mg every 8 hours to start. If she tolerates this well but does not get adequate pain relief, she may increase to 50 mg every 8 hours. She should follow-up with her PCP for ongoing management. Discussed that MRI or steroid injections may be indicated in the future. Both the patient and her daughter are in agreement with this plan. Discharge instructions as documented. Departure - Departure Time of Disposition: 14:33 Disposition: Home, Self-Care 01 Condition: Good Clinical Impression: Lumbar radiculopathy, acute - Discharge Information *PRESCRIPTION DRUG MONITORING PROGRAM REVIEWED*: No *COPY OF PRESCRIPTION DRUG MONITORING REPORT IN PATIENT THALIA: No Prescriptions: traMADol HCl [Tramadol HCl] 25 - 50 mg PO Q8H PRN #15 tablet PRN Reason: Pain Instructions: Radicular Pain Referrals: Erma Field NP [Primary Care Provider] - Forms: ED Department Discharge Additional Instructions: You were seen in the emergency department today for ongoing pain to your low back not relieved by Tylenol and ibuprofen. CT scans were completed in [place] previously and show degenerative changes of your lumbar spine but no acute abnormalities. Recommend that she continue to attend physical therapy. Take Tylenol routinely. You may take 1000 mg every 6 hours, but ensure that you do not exceed 4000 mg in a 24-hour period. Refrain from use of NSAIDs such as ibuprofen or Aleve as this increases your risk of GI bleed. You have been provided a prescription for tramadol. Take one half of a tablet (25 mg) as needed for pain not relieved by Tylenol. If you tolerate the half tablet well but do not achieve adequate relief pain, you may increase to a full 50 mg tablet every 8 hours as needed. Recommend that you continue to apply heat to your low back. Call and schedule follow-up appoint with your primary care provider at her next available visit to discuss ongoing management. Return to ER as needed. Sepsis Event Note (ED) - Evaluation Sepsis Screening Result: No Definite Risk
== END 2020-08-27 15:15 | disposition home or self-care (01) ==
LOC: JD.ED 13:20
DX: M54.16 Radiculopathy, lumbar region (principal); I48.91 Unspecified atrial fibrillation; I10 Essential (primary) hypertension; M19.90 Unspecified osteoarthritis, unspecified site; E03.9 Hypothyroidism, unspecified; Z88.0 Allergy status to penicillin; Z79.01 Long term (current) use of anticoagulants; Z79.899 Other long term (current) drug therapy
CPT/HCPCS: 99283

== ENCOUNTER 2022-05-02 08:06 | Emergency (ER) | payer MEDICARE, BC ==
[2022-05-02] MEDS ORDERED: Sodium Chloride 0.9% 10 ML Syringe FLUSH PRN (08:13)
[2022-05-02 08:53] LABS: ESTIMATED GFR 36 mL/min (>60)
== END 2022-05-02 15:10 | disposition home or self-care (01) ==
LOC: JD.ED 08:06
DX: R55 Syncope and collapse (principal); I48.91 Unspecified atrial fibrillation; I10 Essential (primary) hypertension; E03.9 Hypothyroidism, unspecified; Z88.0 Allergy status to penicillin; Z88.1 Allergy status to other antibiotic agents; Z79.01 Long term (current) use of anticoagulants; Z79.899 Other long term (current) drug therapy; Z95.0 Presence of cardiac pacemaker
CPT/HCPCS: 36415; 70450; 80053; 81001; 83735; 84484; 85025; 86140; 93005; 99284; J3490

== ENCOUNTER 2022-09-06 14:17 | Inpatient (IN) | payer MEDICARE, BC ==
[2022-09-06] MEDS ORDERED: Sodium Chloride 0.9% 10 ML Syringe FLUSH PRN (14:24)
[2022-09-06 15:53] LABS: CORONAVIRUS COVID-19 NAA NEGATIVE (NEGATIVE)
[2022-09-06] MEDS ORDERED: cefTRIAXone 2 GM in Sodium Chloride 0.9% 100 ML IV ONE (16:19)
[2022-09-06] MEDS ORDERED: Docusate Sodium 100 MG Cap PO PRN (17:18)
[2022-09-06] MEDS ORDERED: oxyCODONE 5 MG Tab PO PRN (17:18)
[2022-09-06] MEDS ORDERED: Albuterol/Ipratropium 3.0-0.5 MG/3 ML Neb Soln NEB PRN (17:18)
[2022-09-06] MEDS ORDERED: Acetaminophen 325 MG Tab PO PRN (17:18)
[2022-09-06] MEDS: Sodium Chloride 0.9% 1,000 ML IV SCH (19:07)
[2022-09-07] MEDS ORDERED: traMADol 50 MG Tab PO PRN (07:50)
[2022-09-07] MEDS: Metoprolol Succinate 25 MG Tab.ER PO SCH (08:48)
[2022-09-07] MEDS: Levothyroxine 125 MCG Tab PO SCH (08:49)
[2022-09-07] MEDS: Losartan 25 MG Tab PO SCH (08:49)
[2022-09-07] MEDS: Timolol Maleate 0.5% Ophth Soln 5 ML Bottle EYEBOTH SCH (08:50)
[2022-09-07] MEDS ORDERED: Furosemide 20 MG Tab PO SCH (09:00)
[2022-09-07] MEDS: Apixaban 5 MG Tab PO SCH ×2 (09:07→21:04)
[2022-09-07] MEDS: cefTRIAXone 2 GM in Sodium Chloride 0.9% 100 ML IV SCH (17:57)
[2022-09-07] MEDS: Sodium Chloride 0.9% 1,000 ML IV SCH (21:05)
[2022-09-07] MEDS: BIMATOPROST EYEBOTH SCH (21:05)
[2022-09-08] MEDS: Levothyroxine 125 MCG Tab PO SCH (06:17)
[2022-09-08] MEDS: Apixaban 5 MG Tab PO SCH ×2 (08:29→20:31)
[2022-09-08] MEDS: Metoprolol Succinate 25 MG Tab.ER PO SCH (08:29)
[2022-09-08] MEDS: Losartan 25 MG Tab PO SCH (08:29)
[2022-09-08] MEDS: Timolol Maleate 0.5% Ophth Soln 5 ML Bottle EYEBOTH SCH (08:30)
[2022-09-08 13:03] LABS: CORONAVIRUS COVID-19 NAA NEGATIVE (NEGATIVE)
[2022-09-08] MEDS: cefTRIAXone 2 GM in Sodium Chloride 0.9% 100 ML IV SCH (17:21)
[2022-09-08] MEDS: Potassium Chloride 20 MEQ Tab.ER PO SCH (17:22)
[2022-09-08] MEDS: BIMATOPROST EYEBOTH SCH (20:30)
[2022-09-09] MEDS: Levothyroxine 125 MCG Tab PO SCH (05:04)
[2022-09-09] MEDS: Timolol Maleate 0.5% Ophth Soln 5 ML Bottle EYEBOTH SCH (08:59)
[2022-09-09] MEDS: Potassium Chloride 20 MEQ Tab.ER PO SCH (08:59)
[2022-09-09] MEDS: Metoprolol Succinate 25 MG Tab.ER PO SCH (08:59)
[2022-09-09] MEDS: Losartan 25 MG Tab PO SCH (09:05)
[2022-09-09] MEDS: Apixaban 5 MG Tab PO SCH ×2 (09:07→20:54)
[2022-09-09] MEDS: cefTRIAXone 2 GM in Sodium Chloride 0.9% 100 ML IV SCH (16:43)
[2022-09-09] MEDS: BIMATOPROST EYEBOTH SCH (21:06)
[2022-09-10] MEDS: Levothyroxine 125 MCG Tab PO SCH ×2 (04:52→05:04)
[2022-09-10] MEDS: Apixaban 5 MG Tab PO SCH ×2 (08:21→21:38)
[2022-09-10] MEDS: Metoprolol Succinate 25 MG Tab.ER PO SCH (08:21)
[2022-09-10] MEDS: Losartan 25 MG Tab PO SCH (08:21)
[2022-09-10] MEDS: Timolol Maleate 0.5% Ophth Soln 5 ML Bottle EYEBOTH SCH (08:21)
[2022-09-10] MEDS: cefTRIAXone 2 GM in Sodium Chloride 0.9% 100 ML IV SCH (17:02)
[2022-09-10] MEDS: BIMATOPROST EYEBOTH SCH (21:39)
[2022-09-11] MEDS: Levothyroxine 125 MCG Tab PO SCH (05:36)
[2022-09-11] MEDS: Losartan 25 MG Tab PO SCH (10:02)
[2022-09-11] MEDS: Apixaban 5 MG Tab PO SCH (10:02)
[2022-09-11] MEDS: Metoprolol Succinate 25 MG Tab.ER PO SCH (10:03)
[2022-09-11] MEDS: Timolol Maleate 0.5% Ophth Soln 5 ML Bottle EYEBOTH SCH (10:03)
== END 2022-09-11 10:44 | DRG 194 ==
LOC: JD.ED 14:17 → JD.MS 17:14
PROVIDERS: ADMIT Internal Medicine; ATTEND Internal Medicine
DX: J18.9 Pneumonia, unspecified organism (principal); J44.0 Chronic obstructive pulmonary disease with (acute) lower respiratory infection; J90 Pleural effusion, not elsewhere classified; N30.00 Acute cystitis without hematuria; R53.1 Weakness; Z66 Do not resuscitate; E86.0 Dehydration; G31.84 Mild cognitive impairment of uncertain or unknown etiology; Z20.822 Contact with and (suspected) exposure to COVID-19; M19.90 Unspecified osteoarthritis, unspecified site; H54.7 Unspecified visual loss; F41.0 Panic disorder [episodic paroxysmal anxiety]; I11.0 Hypertensive heart disease with heart failure; I50.9 Heart failure, unspecified; Z88.0 Allergy status to penicillin; Z79.890 Hormone replacement therapy; Z98.49 Cataract extraction status, unspecified eye; I48.91 Unspecified atrial fibrillation; I10 Essential (primary) hypertension; E03.9 Hypothyroidism, unspecified; Z95.0 Presence of cardiac pacemaker; Z79.899 Other long term (current) drug therapy
CPT/HCPCS: 0241U; 36415; 71045; 71045-26; 80053; 81001; 83735; 83880; 84484; 85025; 85379; 85610; 87040; 87086; 93005; 93010; 96365; 97110-GP; 97116-GP; 97161-GP; 97162-GP; 97165-GO; 97166-GO; 97530-GO; 97530-GP; 99222; 99232; 99285; 99285-25; A9270-GY; J0696; J7030; U0002